=== PATIENT | female | born 1985 | race Caucasian/White ===

== ENCOUNTER 2020-05-03 16:37 | Emergency (ER) | payer OTHER ==
[~2020-05-03 16:37] MED LIST: ZOFRAN8 MG PO
[2020-05-03] MEDS ORDERED: NORCO 5-325 TA1 EACH PO ×2 (18:47→18:49)
[2020-05-03] MEDS ORDERED: MEDROL 4MG DOSEP4 MG PO ×2 (18:47→18:49)
[2020-05-03] MEDS ORDERED: ROBAXIN750 MG PO ×2 (18:47→18:49)
== END 2020-05-03 19:07 | disposition home or self-care (01) ==
LOC: FER 16:37
DX: M43.6 Torticollis (principal); F17.210 Nicotine dependence, cigarettes, uncomplicated
CPT/HCPCS: 72125